=== PATIENT | male | born 1990 | race Hispanic/Latino ===

== ENCOUNTER 2019-11-04 14:39 | Emergency (ER) | payer SELFPAY ==
[2019-11-04 16:05] VITALS: BP 123/65
[2019-11-04 16:35] LABS: Basophils % (Auto) 0.5 % (0.0-1.8); Eosinophils % (Auto) 0.7 % (0.0-4.3); Hematocrit 41.7 % (35.5-45.6); Hemoglobin 13.9 gm/dl (11.8-15.2); Lymphocytes % (Auto) 28.4 % (13.4-35.0); Mean Corpuscular HGB Conc 33 % (32-34); Mean Corpuscular Volume 92 fl (84-94); Monocytes # (Auto) 0.6 K/mm3 (0.0-0.8); Monocytes % (Auto) 8.1 % (0.0-7.3); Platelet Count 248 K/mm3 (140-440); Red Blood Count 4.55 M/mm3 (3.65-5.03)
[2019-11-04 16:44] LABS: Bilirubin,Urine NEG (Negative); Blood,Urine NEG (Negative); Color,Urine Yellow (Yellow); Mucus,Urine FEW /HPF; Protein,Urine <15 mg/dL mg/dL (Negative); Urobilinogen,Urine < 2.0 mg/dL (<2.0)
[2019-11-04 16:45] LABS: BUN/Creatinine Ratio 21; Blood Urea Nitrogen 15 mg/dL (9-20); Calcium 9.7 mg/dL (8.4-10.2); Hemolysis Index 4
[2019-11-04 16:55] LABS: Amphetamine Screen,Urine PRESUMPTIVE NEGATIVE; Benzodiazepines Screen,Urine PRESUMPTIVE NEGATIVE; Cocaine Screen,Urine PRESUMPTIVE NEGATIVE; Methadone Screen,Urine PRESUMPTIVE NEGATIVE; Opiate Screen,Urine PRESUMPTIVE NEGATIVE
[2019-11-04 17:08] LABS: Cannabinoid Screen,Urine PRESUMPTIVE POSITIVE
--- NOTE | 2019-11-04 18:29 | Emergency Department Report ---
HPI - General Chief Complaint: Abdominal Pain - HPI HPI: Room 44 The patient is a 29-year-old male present with a chief complaint of fatigue and depression. The patient states he has felt intermittently fatigued for several months and today he had random depression. Patient denied of having suicidal homicidal ideation. Patient denies other complaints ED Past Medical Hx - Past Medical History Previous Medical History?: Yes Hx Liver Disease: Yes (Hepatitis C) - Surgical History Past Surgical History?: Yes - Family History Family history: no significant - Social History Smoking Status: Former Smoker (Stopped smoking yesterday) Substance Use Type: Cocaine, Marijuana, Methamphetamines ED Review of Systems ROS: Stated complaint: HEP C, DEPRESSION, Other details as noted in HPI Constitutional: malaise Physical Exam - Physical Exam Vital Signs: Vital Signs 11/04/19 16:02 Temperature 99.1 F Pulse Rate 89 Respiratory 18 Rate Blood Pressure 123/65 O2 Sat by Pulse 97 Oximetry Physical Exam: GENERAL: The patient is well-developed well-nourished male sitting on chair not appearing to be in acute distress HEENT: Normocephalic. Atraumatic. Extraocular motions are intact. Patient has moist mucous membranes. NECK: Supple. Trachea midline CHEST/LUNGS: Clear to auscultation. There is no respiratory distress noted. HEART/CARDIOVASCULAR: Regular. There is no tachycardia. There is no gallop rub or murmur. ABDOMEN: Abdomen is soft, nontender. Patient has normal bowel sounds. There is no abdominal distention. SKIN: There is no rash. There is no edema. There is no diaphoresis. NEURO: The patient is awake, alert, and oriented. The patient is cooperative. The patient has normal speech MUSCULOSKELETAL: There is no evidence of acute injury. ED Course Vital Signs 11/04/19 16:02 Temperature 99.1 F Pulse Rate 89 Respiratory 18 Rate Blood Pressure 123/65 O2 Sat by Pulse 97 Oximetry ED Medical Decision Making - Lab Data Result diagrams: 11/04/19 16:12 11/04/19 16:12 - Medical Decision Making Patient does not wish to wait for the results of his LFTs - Differential Diagnosis Hepatitis, fatigue, symptomatic anemia, electrolyte imbalance, substance ab Critical care attestation.: If time is entered above; I have spent that time in minutes in the direct care of this critically ill patient, excluding procedure time. ED Disposition Clinical Impression: Fatigue Disposition: DC-01 TO HOME OR SELFCARE Is pt being admited?: No Does the pt Need Aspirin: No Condition: Stable Additional Instructions: Return to the emergency department should you develop worsening symptoms, inability to tolerate food or liquids, high fever or any other concerns Referrals: [facility] [Outside] - 3-5 Days [facility] [Outside] - 3-5 Days Forms: AMA Form Time of Disposition: 18:42
[2019-11-04 18:46] LABS: Alanine Aminotransferase 464 units/L (7-56); Albumin 4.7 g/dL (3.9-5)
[2019-11-04 18:52] LABS: Bilirubin,Direct < 0.2 mg/dL (0-0.2)
== END 2019-11-04 19:09 | disposition home or self-care (01) ==
LOC: ED 14:39
DX: R53.83 Other fatigue (principal); F32.9 Major depressive disorder, single episode, unspecified
CPT/HCPCS: 36415; 80048; 80076; 80307; 80320; 81001; 83690; 85025; 99283; G0480